=== PATIENT | female | born 1995 | race Caucasian/White ===

== ENCOUNTER 2016-12-15 16:20 | Inpatient (IN) ==
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
[2016-12-15 18:35] LABS: BUN/Creatinine Ratio 9 (6-26); Basophils % 0.2 %; Blood Urea Nitrogen 7 mg/dL (7-20); Calcium 9.6 mg/dL (8.6-10.8); Carbon Dioxide 24 mEq/L (19-29); Chloride 109 mEq/L (98-109); Eosinophils # 0.1 K/mcL (0.0-0.6); Eosinophils % 0.6 %; Glucose 98 mg/dL (70-99); Hematocrit 39.9 % (35.3-44.9); Hemoglobin 13.7 g/dL (11.5-15.4); Immature Granulocytes % 0.4 % (0-4); Immature Platelets 9.2 % (1.1-6.1); Lymphocytes # 2.5 K/mcL (0.6-4.6); Lymphocytes % 25.3 %; Mean Corpuscular HGB Conc 34.3 g/dL (31.6-35.5); Mean Corpuscular Hemoglobin 30.5 pg (28.0-33.3); Mean Corpuscular Volume 88.9 fL (83.0-100.0); Mean Platelet Volume 11.7 fL (9.4-12.4); Monocytes # 0.4 K/mcL (0.0-1.3); Monocytes % 4.3 %; Osmolality,Calculated 292 (280-300); Platelet Count 181 K/mcL (140-400); Potassium 3.8 mEq/L (3.5-4.5); Red Blood Count 4.49 M/mcL (3.82-4.97); Red Cell Distribution Width 11.9 % (11.5-14.5); Segmented Neutrophils % 69.2 %; Sodium 142 mEq/L (136-145); eGFR For African Americans > 60 (> 60); eGFR For Non-African Americans > 60 (> 60)
[2016-12-15 18:38] LABS: Acetaminophen < 1.0 mcg/mL (10-30); Ethanol < 10 mg/dL (0-10); Salicylate < 5.0 mg/dL (15-30)
[2016-12-15] MEDS ORDERED: Ibuprofen 600 MG TABLET PO ONE (18:42)
[2016-12-15 19:14] LABS: Bilirubin,Urine Negative (Negative); Blood,Urine Large (Negative); Clarity,Urine Clear (Clear); Color,Urine Yellow (Yellow); Glucose,Urine (UA) Normal (Normal); Ketones,Urine Negative (Negative); Leukocyte Esterase,Urine Negative (Negative); Nitrite,Urine Positive (Negative); PH,Urine 6.5 pH Units (5.0-8.0); Protein,Urine Negative (Neg-Trace); Specific Gravity,Urine 1.011 (1.010-1.025); Urobilinogen,Urine Normal (Normal)
[2016-12-15 19:17] LABS: Bacteria,Urine Moderate per hpf (None-Few); Hyaline Casts,Urine None Seen per lpf (None-Few); RBC,Urine 15-30 per hpf (0-3); Squamous Epithelial Cell,Urine Many per lpf (None-Few); WBC,Urine 0-3 per hpf (0-3)
[2016-12-15 19:19] LABS: Amphetamine Screen,Urine Negative ng/mL (Cutoff=1000); Barbiturate Screen,Urine Negative ng/mL (Cutoff=200); Benzodiazepines Screen,Urine Negative ng/mL (Cutoff=200); Cannabinoid Screen,Urine Negative ng/mL (Cutoff = 50); Cocaine Screen,Urine Negative ng/mL (Cutoff= 300); Opiate Screen,Urine Negative ng/mL (Cutoff=300); Phencyclidine Screen,Urine Negative ng/mL (Cutoff=25)
[2016-12-15] MEDS ORDERED: *HR* LORazepam 1 MG TABLET PO ONE ×2 (20:20→20:22)
[2016-12-15] MEDS ORDERED: Haloperidol Lactate 5 MG/ML VIAL IM PRN (22:58)
[2016-12-15] MEDS ORDERED: Acetaminophen 325 MG TABLET PO PRN (22:58)
[2016-12-15] MEDS ORDERED: *HR* LORazepam 2 MG/ML VIAL IM PRN (22:58)
[2016-12-15] MEDS ORDERED: Mag Hydrox/Al Hydrox/Simeth 30 ML UDC PO PRN (22:58)
[2016-12-15] MEDS ORDERED: MOM Conc 10 ML UD.LIQ PO PRN (22:58)
[2016-12-15] MEDS ORDERED: *HR* LORazepam 1 MG TABLET PO PRN (22:58)
[2016-12-15] MEDS ORDERED: traZODone 50 MG TABLET PO PRN (22:58)
[2016-12-16] MEDS: Nicotine 21 MG PATCH.TD24 TD SCH ×2 (03:21→08:53)
[2016-12-16] MEDS: hydrOXYzine pamoate 25 MG CAPSULE PO PRN ×2 (08:59→21:18)
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
[2016-12-16] MEDS: Venlafaxine XR (24 HR) 75 MG CAP.ER.24H PO SCH (12:07)
[2016-12-17 09:07] VITALS: BP 112/73
[2016-12-17] MEDS: Venlafaxine XR (24 HR) 75 MG CAP.ER.24H PO SCH (10:11)
[2016-12-17] MEDS: Nicotine 21 MG PATCH.TD24 TD SCH (10:12)
--- NOTE | 2016-12-17 13:09 | Discharge Summary ---
Date of Encounter: 12/17/16 Time of Encounter: 12:30 Diagnosis - Discharge Diagnosis (1) Depression with suicidal ideation Status: Acute Medications - Discharge Medications Prescriptions: Venlafaxine XR (24 HR) [Effexor XR] 75 mg PO DAILY #30 cap.er.24h Venlafaxine XR (24 HR) [Effexor XR] 75 mg PO DAILY #30 cap.er.24h 12/17/16 [Rx] Allergies Penicillins Allergy (Verified 03/23/16 20:01) Swelling of Lip/Tongue/Throat Provider Date of admission: 12/16/16 10:59 Primary care physician: PCP NO Discharging clinician: Lui Barnes Assessment and Plan - Patient/Caregiver Discharge Instructions Activity: resume usual activities as tolerated Diet: regular diet - Follow up Plan Follow up with: [facility] [Outside] - 12/27/16 10:30 am (The above appointment is with Julieta to establish you as a client. Please bring your photo ID and insurance card to this appointment. After you meet with Julieta, you will be given an appointment to see the psychiatrist, in addition to another counseling appointment.) Functional capacity at discharge: independent ambulation Overall status at discharge: Stable Disposition: Home, Self-Care Hospital Course Hospital course: Ms. Clarke is a 21 year old female admitted for depression with suicidal ideation. For details of the admission please See H&P On the unit patient was initially depressed and irritable she was started on Effexor XR 75 mg she tolerated the medication she reported having adequate sleep and feeling more relaxed also she discussed her discharge plan I will follow up with a manager social responsibility and she insisted on being discharged and family was supportive and confirming safety of the patient after discharge. She denied any intent to self-harm and was medically stable. - Time Spent with Patient Total time spent providing and/or coordinating discharge services: Greater than 30 minutes Quality - Multiple Antipsychotics Patient discharged on 2 or more antipsychotic medications: No Procedures - Procedures Procedures: Medication Management, Crisis Stabilization, Supportive Therapy, Group Therapy, Psychoeducational Therapy Mental Status Exam - Mental Status Exam Patient orientation: Yes Person, Yes Time, Yes Place Level of alertness: Alert Patient appearance: Appropriate, Well Groomed Behavior: calm, cooperative Psychomotor activity: Normal Eye contact: Maintains Eye Contact Mood description: Euthymic/stable Affect description: congruent with mood, constricted Speech pattern: Normal rate, Normal rhythm, Normal tone Speech Volume: Normal Thought process: Linear, Goal Oriented Thought Content: No Suicidal ideation, No Homicidal ideation, No Overt delusions Perceptual Disturbances: No Auditory hallucinations, No Visual hallucinations Judgment: Limited Insight: Partial
== END 2016-12-17 16:25 | disposition home or self-care (01) | DRG 754 ==
LOC: EMEROO 16:20 → 1ANU 16:20
PROVIDERS: ADMIT Psychiatry & Neurology Psychiatry; ATTEND Psychiatry & Neurology Psychiatry